=== PATIENT | male | born 1945 | race African-American/Black ===

== ENCOUNTER 2021-02-10 21:59 | Emergency (ER) | payer OTHER ==
[~2021-02-10] VITALS: Ht 172.7 cm; Wt 64.0 kg
[2021-02-10 23:43] LABS: BASOPHILS % 0.8 % (0.0-2.0); EOSINOPHILS % 0.1 % (0.0-5.0); HEMATOCRIT. 36.3 % (42.0-52.0); HEMOGLOBIN. 12.7 g/dL (14.0-18.0); MEAN CORPUSCULAR HEMOGLOBIN 30.8 pg (28.0-32.0); MEAN CORPUSCULAR VOLUME 88.3 fL (80.0-94.0); MEAN PLATELET VOLUME 8.1 fl (7.4-10.4); MONOCYTES % 7.1 % (2.0-8.0); PLATELET 247 x1000/uL (130-400); RED BLOOD CELL COUNT 4.11 mill/uL (4.7-6.1); RED CELL DISTRIBUTION WIDTH 13.2 % (11.6-14.6)
[2021-02-10 23:51] LABS: CHLORIDE 102 mEq/L (98-107)
[2021-02-11] MEDS ORDERED: IOHEXOL-300 100 ML BOTTLE ONE (01:31)
[2021-02-11] MEDS ORDERED: SODIUM CHLORIDE 0.9% 500 ML IV ONE (02:00)
[2021-02-11] MEDS ORDERED: DOCU-138 MT (02:09)
[2021-02-11] MEDS ORDERED: NA P230E RC (02:09)
[2021-02-11 03:03] VITALS: BP 123/68
== END 2021-02-11 03:44 | disposition home or self-care (01) ==
LOC: ER 21:59
DX: K59.00 Constipation, unspecified (principal); J96.10 Chronic respiratory failure, unspecified whether with hypoxia or hypercapnia; Z86.73 Personal history of transient ischemic attack (TIA), and cerebral infarction without residual deficits; Z86.19 Personal history of other infectious and parasitic diseases; Z99.81 Dependence on supplemental oxygen
CPT/HCPCS: 36415; 74177; 80053; 85025; 96360; 99285; J7040; Q9967